=== PATIENT | female | born 2000 | race Caucasian/White ===

== ENCOUNTER 2022-10-02 20:43 | Emergency (ER) | payer OTHER ==
[~2022-10-02] VITALS: Ht 165.1 cm; Wt 81.7 kg
[~2022-10-02 20:43] MED LIST: AMOX50SU PO; AUGMENTIN; Motrin100 MG/5 M PO; OMEP10ER PO; PENVK250SU PO; POLY17UD PO; PSYL5.85P; WARF1
== END 2022-10-02 23:50 | disposition home or self-care (01) ==
LOC: ER 20:43
DX: L02.31 Cutaneous abscess of buttock (principal); Z79.899 Other long term (current) drug therapy
CPT/HCPCS: 10060; 99283-25

== ENCOUNTER 2023-01-11 09:44 | Emergency (ER) | payer OTHER ==
[~2023-01-11] VITALS: Ht 167.6 cm; Wt 77.1 kg
[2023-01-11 10:24] VITALS: BP 115/62
[2023-01-11] MEDS ORDERED: Bactrim Ds Tab1 EACH PO (12:25)
== END 2023-01-11 12:52 | disposition home or self-care (01) ==
LOC: ER 09:44
DX: L02.31 Cutaneous abscess of buttock (principal)
CPT/HCPCS: 10060; 99282-25

== ENCOUNTER 2023-08-16 19:22 | Emergency (ER) | payer OTHER ==
[~2023-08-16] VITALS: Ht 165.1 cm; Wt 72.6 kg
[~2023-08-16 19:22] MED LIST changes: +Bactrim Ds Tab1 EACH PO
[2023-08-16 19:33] VITALS: BP 102/59
== END 2023-08-16 23:06 | disposition home or self-care (01) ==
LOC: ER 19:22
DX: L02.215 Cutaneous abscess of perineum (principal)
CPT/HCPCS: 10060; 99282-25